=== PATIENT | female | born 1980 ===

== ENCOUNTER 2017-07-03 19:34 | Emergency (ER) | payer SELFPAY ==
[2017-07-03 19:50] VITALS: O2SAT 100
[2017-07-03] MEDS ORDERED: Sodium Chloride 0.9% 1,000 ML IV STA (20:11)
--- NOTE | 2017-07-03 20:16 | C.PDOC ---
History Of Present Illness 36 year old female who presents to the ER with a complaint of lower abdominal pain radiating to the epigastric region, associated with nausea. Patient states the pain worsens when her bladder is full. Patient denies fever, vomiting, diarrhea, or dysuria. LMP was 06/14 Time Seen by Provider: 07/03/17 20:07 Chief Complaint (Nursing): Abdominal Pain History Per: Patient History/Exam Limitations: no limitations Onset/Duration Of Symptoms: Days Current Symptoms Are (Timing): Still Present Location Of Pain/Discomfort: Suprapubic Radiation Of Pain To:: Other (Epigastric region) Quality Of Discomfort: Unable To Describe Associated Symptoms: Nausea. denies: Fever, Vomiting, Diarrhea, Urinary Symptoms Exacerbating Factors: None Alleviating Factors: None Recent travel outside of the [place]: No Abnormal Vaginal Bleeding: No Past Medical History Reviewed: Historical Data, Nursing Documentation, Vital Signs Vital Signs: Last Vital Signs Temp 98.0 F 07/03/17 19:45 Pulse 80 07/03/17 19:45 Resp 16 07/03/17 19:45 BP 122/85 07/03/17 19:45 Pulse Ox 100 07/03/17 20:26 - Medical History PMH: No Chronic Diseases Surgical History: No Surg Hx Family History: States: Unknown Family Hx - Social History Hx Alcohol Use: No Hx Substance Use: No - Immunization History Hx Tetanus Toxoid Vaccination: No Hx Influenza Vaccination: No Hx Pneumococcal Vaccination: No Review Of Systems Except As Marked, All Systems Reviewed And Found Negative. Constitutional: Negative for: Fever Gastrointestinal: Positive for: Nausea, Abdominal Pain Genitourinary: Negative for: Dysuria Physical Exam - Physical Exam Additional Physical Exam Comments: Constitutional: No acute distress. Head: Normocephalic. Atraumatic. Eyes: PERRL. ENT: Moist mucous membranes. Neck: Supple. Cardiovascular: Regular rate. Radial pulse 2+ bilaterally. Chest: No tenderness. Respiratory: Clear to auscultation bilaterally. GI: Suprapubic tenderness. No RLQ tenderness. Back: No CVA tenderness. Musculoskeletal: No tenderness or swelling of extremities. Skin: No rash. Neurologic: Alert, no focal deficit. ED Course And Treatment - Laboratory Results Result Diagrams: 07/03/17 20:42 07/03/17 20:42 O2 Sat by Pulse Oximetry: 100 (Room air) Pulse Ox Interpretation: Normal Medical Decision Making Medical Decision Making: Plan: * Blood work * Urinalysis * Toradol * Zofran * IV fluids CT shows involuting or ruptured R ovarian cyst. Counseled patient on newly diagnosed diabetes, will prescribe Metformin but will have to avoid for 48 hours due to IV contrast today. I instructed patient to f/u with primary care/clinic for further diabetes management and education. Instructed to return to ED for worsening pain, dyspnea, vomiting, or any other problem. Disposition - Disposition Referrals: [facility] [Outside] Disposition Time: 22:43 Condition: STABLE Prescriptions: MetFORMIN [glucoPHAGE] 1,000 mg PO BID #28 tab Instructions: Ovarian Cyst (ED), Diabetes Mellitus Type 2 in Adults (ED) Forms: [employer] (Comoran), Gen Discharge Inst Kyrgyz - Clinical Impression Clinical Impression: Ovarian cyst, Diabetes mellitus - Scribe Statement The provider has reviewed the documentation as recorded by the Scribe Liam Pérez All medical record entries made by the Scribe were at my direction and personally dictated by me. I have reviewed the chart and agree that the record accurately reflects my personal performance of the history, physical exam, medical decision making, and the department course for this patient. I have also personally directed, reviewed, and agree with the discharge instructions and disposition.
[2017-07-03 20:26] LABS: RBC URINE 1 /hpf (0-3); URINE BILIRUBIN NEGATIVE (NEGATIVE); URINE BLOOD NEGATIVE (NEGATIVE); URINE COLOR Colorless (YELLOW); URINE GLUCOSE (UA) 3+ mg/dL (Normal); URINE KETONE NEGATIVE (NEGATIVE); URINE LEUKOCYTE ESTERASE 1+ Leu/uL (Negative); URINE PROTEIN NEGATIVE (NEGATIVE); URINE UROBILINOGEN NORMAL mg/dL (0.2-1.0); WBC URINE 2 /hpf (0-5)
[2017-07-03 20:51] LABS: BASO % 0.5 % (0.0-2.0); EOS % 0.6 % (0.0-4.0); HEMATOCRIT 45.3 % (34.0-47.0); LYMPH # 2.9 K/uL (1.0-4.3); LYMPH % 34.3 % (20.0-40.0); MEAN CELL VOLUME 91.1 fL (81.0-99.0); MEAN CORPUSCULAR HGB CONC 34.1 g/dL (33.0-37.0); MEAN PLATELET VOLUME 8.9 fL (7.2-11.7); MONO # 0.8 K/uL (0.0-0.8); MONO % 9.6 % (0.0-10.0); NRBC % 0.1 % (0.0-2.0); RED CELL DISTRIBUTION WIDTH 12.7 % (11.5-14.5); WHITE BLOOD COUNT 8.6 K/uL (4.8-10.8)
[2017-07-03] MEDS ORDERED: Sodium Chloride 0.9% 1,000 ML ONE (21:01)
[2017-07-03 21:02] LABS: CHLORIDE 96 mmol/L (98-107)
[2017-07-03 21:03] LABS: POTASSIUM 4.2 mmol/L (3.6-5.2); SODIUM 126 mmol/L (132-148)
[2017-07-03 21:05] LABS: ALB/GLOB RATIO 1.4 (1.0-2.1); ALKALINE PHOSPHATASE 59 U/L (38-126); ALT/SGPT 32 U/L (9-52); AST/SGOT 25 U/L (14-36); BILIRUBIN,TOTAL 0.9 mg/dL (0.2-1.3); BLOOD UREA NITROGEN 16 mg/dL (7-17); CARBON DIOXIDE 20 mmol/L (22-30); GFR AFRICAN-AMERICAN > 60; TOTAL PROTEIN 7.2 g/dL (6.3-8.3)
[2017-07-03 21:06] LABS: CALCIUM 8.6 mg/dl (8.6-10.4)
[2017-07-03 21:07] LABS: GLUCOSE,RANDOM 478 mg/dL (65-105)
[2017-07-03] MEDS ORDERED: Iodixanol 320 mg/ml 150 ml Bottle IV ONE (21:47)
[2017-07-03 22:03] LABS: DRAW SITE VENOUS; VENOUS BLOOD GAS BASE EXCESS -4.1 mmol/L (0.0-2.0); VENOUS BLOOD GAS PCO2 44 mmHg (40-60); VENOUS BLOOD PH 7.31 (7.32-7.43)
--- NOTE | 2017-07-03 22:43 | CT ---
EXAM: CT Abdomen and Pelvis With Intravenous Contrast CLINICAL HISTORY: 36 years old, female; Pain; Abdominal pain; Generalized; Additional info: Lower abdominal tenderness, vomiting TECHNIQUE: Axial computed tomography images of the abdomen and pelvis with intravenous contrast. All CT scans at this facility use one or more dose reduction techniques, viz.: automated exposure control; ma/kV adjustment per patient size (including targeted exams where dose is matched to indication; i.e. head); or iterative reconstruction technique. Coronal and sagittal reformatted images were created and reviewed. CONTRAST: 100 mL of VISIPAQUE administered intravenously. COMPARISON: No relevant prior studies available. FINDINGS: Lower thorax: No acute findings. ABDOMEN: Liver: Unremarkable. No mass. Gallbladder and bile ducts: No calcified stones. No ductal dilation. Pancreas: No ductal dilation. No mass. Spleen: No splenomegaly. Adrenals: No mass. Kidneys and ureters: Probable small cyst upper pole LEFT kidney. 0.6 x 0.9 x 0.8 cm enhancing or hyperdense lesion within midpole LEFT kidney, indeterminate by CT criteria. No hydronephrosis. Stomach and bowel: Apparent mild mural/fold thickening of few jejunal loops. No associated inflammatory stranding. No obstruction. Appendix: Normal caliber. No inflammation. PELVIS: Bladder: Unremarkable. Reproductive: 2.0 x 1.6 by 2.1 cm peripherally enhancing hypodensity with crenulated margins within RIGHT ovary. ABDOMEN and PELVIS: Intraperitoneal space: Trace free fluid within pelvis. No free air. Bones/joints: No acute fracture. Soft tissues: Unremarkable. Vasculature: Unremarkable. No aneurysm. Lymph nodes: No pathologically enlarged lymph nodes. IMPRESSION: 1. Involuting or ruptured RIGHT ovarian follicle/cyst. 2. Possible mild enteritis. Clinical correlation is needed. 3. Kidney lesion, indeterminate. Recommend nonemergent MRI. 4. Incidental/non-acute findings are described above.
[2017-07-03 23:49] VITALS: BP 111/81; PULSE 82; RESP 18; TEMP 97.8
== END 2017-07-03 23:15 | disposition home or self-care (01) ==
LOC: C.ER 19:34
DX: N83.209 Unspecified ovarian cyst, unspecified side (principal); E11.9 Type 2 diabetes mellitus without complications
CPT/HCPCS: 74177; 80053; 81001; 82009; 82803; 83690; 84703; 85025; 96361; 96374; 96375; 99285; J1885; J2405; J7040; Q9967

== ENCOUNTER 2017-11-06 13:36 | Emergency (ER) | payer SELFPAY ==
[2017-11-06 13:51] VITALS: BMI 23.0
[2017-11-06 13:53] VITALS: RESP 20; O2SAT 100
--- NOTE | 2017-11-06 14:48 | C.PDOC ---
History Of Present Illness 37 y/o female presents complaining of back pain that radiates to the abdomen and pelvis, ongoing for almost 2 months. Pain is constant but varies in intensity. Also radiates to bilateral buttocks and legs. She was evaluated by the clinic, had a pap smear donewhich showed "cancer cells" and is getting a biopsy done next month. Patient does report dysuria but no frequency. No nausea , vomiting, fever, vaginal discharge, or vaginal bleeding. Time Seen by Provider: 11/06/17 14:39 Chief Complaint (Nursing): Back Pain History Per: Patient, Weapons Specialist (JONATHAN Braden) History/Exam Limitations: no limitations Onset/Duration Of Symptoms: Days (x 2 months) Current Symptoms Are (Timing): Still Present Past Medical History Reviewed: Historical Data, Nursing Documentation, Vital Signs Vital Signs: Last Vital Signs Temp 98.2 F 11/06/17 18:06 Pulse 80 11/06/17 18:06 Resp 20 11/06/17 18:06 BP 91/66 L 11/06/17 18:06 Pulse Ox 100 11/06/17 19:21 - Medical History PMH: Diabetes, HTN Denies: Chronic Kidney Disease Surgical History: No Surg Hx Family History: States: No Known Family Hx - Social History Hx Tobacco Use: No Hx Alcohol Use: No Hx Substance Use: No - Immunization History Hx Tetanus Toxoid Vaccination: No Hx Influenza Vaccination: No Hx Pneumococcal Vaccination: No Review Of Systems Except As Marked, All Systems Reviewed And Found Negative. Constitutional: Negative for: Fever Gastrointestinal: Positive for: Abdominal Pain. Negative for: Nausea, Vomiting Genitourinary: Positive for: Dysuria, Pelvic Pain. Negative for: Frequency, Vaginal Discharge, Vaginal Bleeding Musculoskeletal: Positive for: Back Pain (radiating to buttocks and legs) Physical Exam - Physical Exam Appears: No Acute Distress, Other (Appears anxious) Skin: Normal Color, Warm, Dry Head: Atraumatic, Normacephalic Eye(s): bilateral: Normal Inspection, EOMI Nose: Normal Oral Mucosa: Moist Neck: Normal ROM, Supple Chest: Symmetrical Cardiovascular: Rhythm Regular Respiratory: Normal Breath Sounds, No Accessory Muscle Use Gastrointestinal/Abdominal: Soft, Tenderness (diffuse), No Guarding, No Rebound Back: Normal Inspection, No CVA Tenderness, No Vertebral Tenderness, Paraspinal Tenderness (to lumbar region) Extremity: Normal ROM Extremity: Bilateral: Atraumatic, Normal Color And Temperature, Normal ROM Neurological/Psych: Oriented x3, Normal Speech, Normal Sensation, No Other ( focal deficits) ED Course And Treatment - Laboratory Results Result Diagrams: 11/06/17 15:06 11/06/17 15:06 O2 Sat by Pulse Oximetry: 100 (RA) Pulse Ox Interpretation: Normal - CT Scan/US CT abdomen/pelvis Other Rad Studies (CT/US): Read By Radiologist, Radiology Report Reviewed CT/US Interpretation: FINDINGS: LOWER THORAX: Unremarkable. LIVER: Unremarkable. No gross lesion or ductal dilatation. GALLBLADDER AND BILE DUCTS : Unremarkable. PANCREAS: Unremarkable. No gross lesion or ductal dilatation. SPLEEN: Unremarkable. ADRENALS: Unremarkable. No mass. KIDNEYS AND URETERS: 9 mm heterogeneous lesion mid left kidney unchanged from previous. Evaluation with ultrasound or gadolinium enhanced magnetic resonance imaging is advised in consideration of possible neoplasm. Left upper pole 2.0 cm cortical cyst, unchanged. No calculus or hydronephrosis. VASCULATURE: Prominent left-sided pelvic veins. Please correlate with any symptoms that may be related to pelvic congestion syndrome. BOWEL: Unremarkable. No obstruction. No gross mural thickening. APPENDIX: Normal appendix. PERITONEUM : Unremarkable. No free fluid. No free air. LYMPH NODES: Unremarkable. No enlarged lymph nodes. BLADDER: Unremarkable. REPRODUCTIVE: Normal uterus. BONES: No acute fracture. OTHER FINDINGS: None. IMPRESSION: No acute abnormality. Prominent left-sided pelvic veins. Please correlate for possible pelvic congestion syndrome. 9 mm heterogeneous mid left renal mass. Further evaluation is advised to exclude renal neoplasm. Stable left upper pole renal cortical cyst. Otherwise unremarkable. Progress Note: Given 30 mg Toradol IV. Ordered blood work, urine, and CT abdomen /pelvis with IV contrast. Urine is indicative of UTI. Patient treated with initial dose of Macrobid in the ED. On re-evlauation, pain improved. Pt notes she is nervous she is going to from cancer like mother. Discussed need for follow up and biopsy and limitations of the ER. Discussed CT results and copy given for further evaluation. Case discussed with Dr Bush who evaluated results and agreed upon plan and treatment. Disposition Counseled Patient/Family Regarding: Studies Performed, Diagnosis, Need For Followup, Rx Given - Disposition Disposition: HOME/ ROUTINE Disposition Time: 18:00 Condition: STABLE Additional Instructions: Molly lema o la clnica en 2-5 robles sin falta, para mas evaluacin. Selah los medicamentos shauna indicado. Volver a la rashel de emergencia en cualquier momento si los sntomas persisten o empeoran. 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 - Scribe Statement The provider has reviewed the documentation as recorded by the Scribe (Ibeth Dang) All medical record entries made by the Scribe were at my direction and personally dictated by me. I have reviewed the chart and agree that the record accurately reflects my personal performance of the history, physical exam, medical decision making, and the department course for this patient. I have also personally directed, reviewed, and agree with the discharge instructions and disposition.
[2017-11-06 15:05] LABS: HCG,QUALITATIVE URINE NEGATIVE (NEGATIVE)
[2017-11-06 15:08] LABS: SQUAMOUS EPITHIAL 68 /hpf (0-5); URINE BACTERIA RARE (<OCC); URINE BILIRUBIN NEGATIVE (NEGATIVE); URINE BLOOD 2+ (NEGATIVE); URINE CLARITY Hazy (Clear); URINE COLOR Yellow (YELLOW); URINE GLUCOSE (UA) NORMAL (Normal); URINE LEUKOCYTE ESTERASE 3+ Leu/uL (Negative); URINE NITRATE NEGATIVE (NEGATIVE); URINE PROTEIN 1+ mg/dL (NEGATIVE)
[2017-11-06 15:10] LABS: BASO % 0.5 % (0.0-2.0); EOS % 0.5 % (0.0-4.0); HEMOGLOBIN 15.7 g/dL (11.0-16.0); LYMPH % 22.9 % (20.0-40.0); MEAN CELL VOLUME 90.1 fL (81.0-99.0); MEAN CORPUSCULAR HEMOGLOBIN 31.8 pg (27.0-31.0); MEAN CORPUSCULAR HGB CONC 35.3 g/dL (33.0-37.0); MEAN PLATELET VOLUME 8.9 fL (7.2-11.7); MONO # 0.7 K/uL (0.0-0.8); NEUT % 68.1 % (50.0-75.0); RBC 4.94 Mil/uL (3.80-5.20); RED CELL DISTRIBUTION WIDTH 12.5 % (11.5-14.5); WHITE BLOOD COUNT 8.8 K/uL (4.8-10.8)
[2017-11-06 15:34] LABS: ALB/GLOB RATIO 1.1 (1.0-2.1); ALT/SGPT 29 U/L (9-52); AST/SGOT 18 U/L (14-36); BLOOD UREA NITROGEN 12 mg/dL (7-17); GFR AFRICAN-AMERICAN > 60; GFR NON-AFRICAN AMERICAN > 60; LIPASE 96 U/L (23-300)
[2017-11-06] MEDS ORDERED: Iodixanol 320 MG/ML 100 ML BOTTLE IV ONE (17:13)
--- NOTE | 2017-11-06 17:53 | CT ---
PROCEDURE: CT Abdomen and Pelvis with contrast HISTORY: pain COMPARISON: None. TECHNIQUE: Contrast dose: 100 mL Visipaque 320 Radiation dose: Total exam DLP = 441.49 mGy-cm. This CT exam was performed using one or more of the following dose reduction techniques: Automated exposure control, adjustment of the mA and/or kV according to patient size, and/or use of iterative reconstruction technique. FINDINGS: LOWER THORAX: Unremarkable. LIVER: Unremarkable. No gross lesion or ductal dilatation. GALLBLADDER AND BILE DUCTS: Unremarkable. PANCREAS: Unremarkable. No gross lesion or ductal dilatation. SPLEEN: Unremarkable. ADRENALS: Unremarkable. No mass. KIDNEYS AND URETERS: 9 mm heterogeneous lesion mid left kidney unchanged from previous. Evaluation with ultrasound or gadolinium enhanced magnetic resonance imaging is advised in consideration of possible neoplasm. Left upper pole 2.0 cm cortical cyst, unchanged. No calculus or hydronephrosis. VASCULATURE: Prominent left-sided pelvic veins. Please correlate with any symptoms that may be related to pelvic congestion syndrome. BOWEL: Unremarkable. No obstruction. No gross mural thickening. APPENDIX: Normal appendix. PERITONEUM: Unremarkable. No free fluid. No free air. LYMPH NODES: Unremarkable. No enlarged lymph nodes. BLADDER: Unremarkable. REPRODUCTIVE: Normal uterus BONES: No acute fracture. OTHER FINDINGS: None. IMPRESSION: No acute abnormality. Prominent left-sided pelvic veins. Please correlate for possible pelvic congestion syndrome. 9 mm heterogeneous mid left renal mass. Further evaluation is advised to exclude renal neoplasm. Stable left upper pole renal cortical cyst. Otherwise unremarkable.
[2017-11-06 18:07] VITALS: BP 91/66; PULSE 80; TEMP 98.2
== END 2017-11-06 18:29 | disposition home or self-care (01) ==
LOC: C.ER 13:36
DX: N39.0 Urinary tract infection, site not specified (principal); M54.5 Low back pain; I10 Essential (primary) hypertension; E11.9 Type 2 diabetes mellitus without complications
CPT/HCPCS: 74177; 80053; 81001; 83690; 84703; 85025; 87086; 96374; 99285; J1885; Q9967

== ENCOUNTER 2018-04-25 15:51 | Emergency (ER) | payer OTHER ==
[2018-04-25 16:30] VITALS: BMI 22.6
[2018-04-25 16:33] VITALS: BP 118/79; PULSE 82; RESP 18; O2SAT 100
[2018-04-25 17:54] LABS: HCG,QUALITATIVE URINE NEGATIVE (NEGATIVE)
[2018-04-25 17:56] LABS: SQUAMOUS EPITHIAL 3 /hpf (0-5); URINE BACTERIA FEW (<OCC); URINE BILIRUBIN NEGATIVE (NEGATIVE); URINE BLOOD NEGATIVE (NEGATIVE); URINE CLARITY Clear (Clear); URINE COLOR Yellow (YELLOW); URINE GLUCOSE (UA) 3+ mg/dL (Normal); URINE LEUKOCYTE ESTERASE TRACE Leu/uL (Negative); URINE PROTEIN NEGATIVE (NEGATIVE); URINE UROBILINOGEN NORMAL mg/dL (0.2-1.0)
--- NOTE | 2018-04-25 18:09 | C.PDOC ---
History Of Present Illness 37 year old female presents to the emergency department with complaints of low back pain, mostly in the right side, for the past 4 days. Patient states that the pain radiates down to her right leg. Otherwise she denies any dysuria, hematuria, numbness, tingling, or any other injuries. Time Seen by Provider: 04/25/18 17:00 Chief Complaint (Nursing): Back Pain History Per: Patient History/Exam Limitations: no limitations Onset/Duration Of Symptoms: Days Current Symptoms Are (Timing): Still Present Past Medical History Reviewed: Historical Data, Nursing Documentation, Vital Signs Vital Signs: Last Vital Signs Temp Pulse 82 04/25/18 16:30 Resp 18 04/25/18 16:30 BP 118/79 04/25/18 16:30 Pulse Ox 100 04/25/18 22:11 - Medical History PMH: Diabetes, HTN Denies: Chronic Kidney Disease Family History: States: No Known Family Hx - Social History Hx Tobacco Use: No Hx Alcohol Use: No Hx Substance Use: No - Immunization History Hx Tetanus Toxoid Vaccination: No Hx Influenza Vaccination: No Hx Pneumococcal Vaccination: No Review Of Systems Except As Marked, All Systems Reviewed And Found Negative. Constitutional: Negative for: Fever, Chills Cardiovascular: Negative for: Chest Pain Respiratory: Negative for: Shortness of Breath Gastrointestinal: Negative for: Nausea, Vomiting Genitourinary: Negative for: Dysuria, Hematuria Musculoskeletal: Positive for: Back Pain (right lower side), Leg Pain (Right). Negative for: Other (tingling of R leg) Neurological: Negative for: Weakness, Numbness Physical Exam - Physical Exam Appears: Non-toxic, No Acute Distress Skin: Warm, Dry Head: Atraumatic, Normacephalic Eye(s): bilateral: Normal Inspection Oral Mucosa: Moist Neck: Supple Back: Other (tenderness to lower back; muscle spasm on lateral lumbar spine) Neurological/Psych: Oriented x3, Normal Speech, Normal Cognition ED Course And Treatment O2 Sat by Pulse Oximetry: 100 (RA) Pulse Ox Interpretation: Normal Progress Note: Urinalysis and LS Spine x-ray ordered. Lidoderm, toradol, and valium administered. X-ray results showed no acute changes. On re-evaluation, patient is tolerating PO well, resting comfortably, and ambulatory. Patient will be discharged home and was instructed to follow up with clinic. Disposition - Disposition Referrals: [facility] [Outside] Disposition: HOME/ ROUTINE Disposition Time: 20:05 Condition: STABLE Additional Instructions: Follow up in Clinic within 1-2 days. Return to ED if feel worse. 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 - Scribe Statement The provider has reviewed the documentation as recorded by the Scribe All medical record entries made by the Scribe were at my direction and personally dictated by me. I have reviewed the chart and agree that the record accurately reflects my personal performance of the history, physical exam, medical decision making, and the department course for this patient. I have also personally directed, reviewed, and agree with the discharge instructions and disposition.
[2018-04-25] MEDS ORDERED: Lidocaine 5% Patch TD STA (18:15)
[2018-04-25] MEDS ORDERED: Lidocaine 5% Patch TD ONE (18:21)
--- NOTE | 2018-04-26 10:15 | RAD ---
Date of service: 04/25/2018 PROCEDURE: Radiographs of the Lumbar Spine. HISTORY: low back pain COMPARISON: CT abdomen and pelvis with IV contrast performed 11/06/17 FINDINGS: BONES: Alignment appears satisfactory. No listhesis. No acute displaced fracture. DISC SPACES: Unremarkable. OTHER FINDINGS: Mild constipation. Tiny radiopaque densities projecting over the lower pelvis/hips appear external to the patient. IMPRESSION: Unremarkable radiographs of the lumbar spine.
== END 2018-04-25 20:16 | disposition home or self-care (01) ==
LOC: C.ER 15:51
DX: M54.5 Low back pain (principal)
CPT/HCPCS: 72100; 81001; 84703; 87086; 96372; 99283; J1885